=== PATIENT | male | born 1945 | race Caucasian/White ===

== ENCOUNTER 2016-06-19 13:01 | Emergency (ER) | payer MEDICARE, OTHER ==
[~2016-06-19 13:01] MED LIST: ASPIRIN325 MG PO; BIOTIN1 MG PO; COREG12.5 MG PO; EFFEXOR XR150 MG PO; FEOSOL325 MG PO; FOLIC ACID1 MG PO; HUMALOG100 UNIT/1 SUB-Q; NORVASC10 MG PO; PRAVACHOL80 MG PO; PROTONIX40 MG PO; TYLENOL EXTRA500 MG PO; VITAMIN D2000 UNI1 PO
== END 2016-06-19 13:58 | disposition disaster alternative care site (69) ==
LOC: GAMB 13:01
DX: E11.649 Type 2 diabetes mellitus with hypoglycemia without coma (principal)
CPT/HCPCS: J0171; J7030

== ENCOUNTER 2016-06-22 22:27 | Emergency (ER) | payer MEDICARE, OTHER ==
--- NOTE | ~2016-06-22 | ER ---
PATIENT'S NAME: LARRY CRABTREE [facility] AGE: 70 Y [address] ROOM: [place] [address] LOCATION: ED ADMIT DATE: 06/22/2016 ER/Outpatient Report DISCHARGE DATE: FAMILY PHYSICIAN: PHYSICIAN, NO ATTENDING PHYSICIAN: Marita Roe Time of Arrival 2225 hours. Time of Evaluation: 2225 hours. IDENTIFICATION: A 70-year-old male. CHIEF COMPLAINT: Code Blue. HISTORY OF PRESENT ILLNESS: The patient is a 70-year-old male who was at home. His had last seen him approximately 30 minutes prior to finding him at 2155 hours, not breathing, pulseless and cold. She was not able to initiate CPR and 911 was called. The 911 arrived at 2201. CPR was initiated at approximately 2203. The patient was found to be in asystole prior to arrival to the ER. The patient received 4 doses of epinephrine. They did not think they had fine VFib at 1 point and did shock him once. The patient's when she arrived said that they had done several things throughout the day, he had been out on the mower and did have a sharp left- sided rib pain, but had no other complaints. PAST MEDICAL HISTORY: Obtained later. ALLERGY: No known drug allergies. CURRENT MEDICATIONS: Unknown at the time. DISCHARGE MEDICATIONS: Discharge medications from the hospital on 03/14/2016 included: 1. Amlodipine 10 mg daily. 2. Aspirin 325 mg daily. 3. Carvedilol 12.5 mg b.i.d. 4. Vitamin D 2000 units twice daily. 5. Ferrous sulfate 325 mg b.i.d. 6. Folic acid 2 mg b.i.d. PATIENT'S NAME: LARRY CRABTREE [facility] AGE: 70 Y [address] ROOM: [place] [id number] LOCATION: ED ADMIT DATE: 06/22/2016 ER/Outpatient Report DISCHARGE DATE: FAMILY PHYSICIAN: PHYSICIAN, NO ATTENDING PHYSICIAN: Marita Roe 7. Biotin 1 mg b.i.d. 8. Insulin per insulin pump. 9. Pantoprazole 40 mg daily. 10. Pravastatin 80 mg daily. 11. Effexor XR 150 mg q.18 hours. 12. Tylenol p.r.n. MEDICAL PROBLEMS: Diabetes insulin requiring, hypertension, history of acute kidney injury in March, coronary artery disease with previous stents. SOCIAL HISTORY: The patient is . Lives here in [place]. He is retired. Tobacco use, 50 plus pack-year smoking history per old records. History of alcohol use in the per old records. FAMILY HISTORY: Positive for heart failure in his mother again per old records. REVIEW OF SYSTEMS: Unable to obtain from the patient. PHYSICAL EXAMINATION: VITAL SIGNS: Temperature 95.9 tympanic. The patient arrived to the emergency room intubated with the ERIK device providing chest compressions. Breath sounds were confirmed on audible bilaterally. ABDOMEN: Slightly distended. SKIN: The patient is cold. LABORATORY DATA: ACLS protocol was followed for the Code Blue. Please refer to the Code Blue record. Sodium 145, potassium 5.3, chloride 108, CO2 16, BUN 20, creatinine 1.7, blood sugar 163, Accu-Chek at the scene 149. Liver enzymes normal. CPK 108, CK-MB 2.8 and troponin I 0.294. EMERGENCY DEPARTMENT COURSE: The patient arrived in asystole and remained in asystole despite epinephrine and chest compressions. Resuscitation ended at 2236 hours after the Code Team agreed on discontinuing resuscitative efforts as they are futile at this point. IMPRESSION AND PLAN: Asystole probably secondary to acute coronary syndrome with acute myocardial infarction, tobacco has been a contributing factor. Other contributing factors include a history of coronary artery disease, hypertension, diabetes PATIENT'S NAME: LARRY CRABTREE [facility] AGE: 70 Y [address] ROOM: [place] [address] LOCATION: [facility] ADMIT DATE: 06/22/2016 ER/Outpatient Report DISCHARGE DATE: FAMILY PHYSICIAN: PHYSICIAN, NO ATTENDING PHYSICIAN: Marita Roe mellitus, insulin requiring. The patient's was notified. criminal defense attorney was notified and an autopsy will not be performed nor it was contacted. MARITA ROE MD CAR/modl /[id number] d: 06/23/16 0539 t: 06/30/16 1838, OUTPATIENT REPORT
[2016-06-22 22:51] LABS: HEMOGLOBIN 11.9 g/dL (11.0-16.0); MCH 29.9 pg (27.0-34.0); MPV 11.4 fl (9.4-12.4); RBC 3.98 M/uL (3.50-5.50); RDW-CV 13.1 % (11.9-14.6); WBC 9.3 K/uL (4.0-11.0)
[2016-06-22 22:53] LABS: INR - (THERAPEUTIC) 1.08 (0.92-1.07); PROTIME 11.4 SECONDS (9.8-11.4); PTT 52 SECONDS (25-32)
[2016-06-22 23:05] LABS: ALBUMIN 2.6 gm/dL (3.5-5.0); CREATININE 1.7 mg/dL (0.6-1.3); MAGNESIUM 2.3 mg/dL (1.8-2.6); POTASSIUM 5.3 mMol/L (3.7-5.1); TOTAL BILIRUBIN 0.2 mg/dL (0.0-1.5); TOTAL PROTEIN 5.2 g/dL (6.0-8.4)
[2016-06-22 23:06] LABS: ANION GAP 26.3 (10.0-19.0)
[2016-06-22 23:19] LABS: HEMATOCRIT 37.8 % (37.0-53.0); MCHC 31.5 gm/dL (32.0-36.5)
[2016-06-22 23:20] LABS: PLATELET COUNT 137 K/uL (150-450)
[2016-06-22 23:21] LABS: ABSOLUTE NEUTROPHIL CT (ANC) 2.5 K/uL (1.4-9.0); LYMPHOCYTE # 5.8 K/uL (0.8-4.0); LYMPHOCYTE % 62 %; MONOCYTE # 0.7 K/uL (0.0-1.0); SEGMENTED NEUTROPHIL # 2.5 K/uL (1.4-9.0); SEGMENTED NEUTROPHIL % 27 %
== END 2016-06-22 22:36 | disposition expired ==
LOC: GMED 22:27
PROVIDERS: Family Medicine
DX: I46.9 Cardiac arrest, cause unspecified (principal); I10 Essential (primary) hypertension; E11.9 Type 2 diabetes mellitus without complications; I25.10 Atherosclerotic heart disease of native coronary artery without angina pectoris; F17.210 Nicotine dependence, cigarettes, uncomplicated; Z79.82 Long term (current) use of aspirin; Z79.899 Other long term (current) drug therapy; Z79.4 Long term (current) use of insulin
CPT/HCPCS: J0171

== ENCOUNTER → 2016-06-22 | Outpatient (CLI) | payer MEDICARE, OTHER | END | disposition disaster alternative care site (69) | LOC: GAMB 22:01 | DX: I46.9 Cardiac arrest, cause unspecified (principal); E10.9 Type 1 diabetes mellitus without complications; R40.20 Unspecified coma | CPT/HCPCS: A0422; A0425; A0433 ==